=== PATIENT | female | born 1985 | race Two or more races ===

== ENCOUNTER 2021-09-27 15:55 | Day surgery (SDC) | payer OTHER ==
[~2021-09-27] VITALS: Ht 167.6 cm; Wt 113.4 kg
[2021-09-28] MEDS ORDERED: SYNTHROID200 MCG PO (06:52)
== END 2021-09-28 15:55 | disposition home or self-care (01) ==
LOC: ER 15:55 → CIR.AMB 09-28 07:42
PROVIDERS: ATTEND Obstetrics & Gynecology
DX: O02.1 Missed abortion (principal); Z20.822 Contact with and (suspected) exposure to COVID-19; F41.9 Anxiety disorder, unspecified; F12.90 Cannabis use, unspecified, uncomplicated

== ENCOUNTER 2022-03-13 10:10 | Outpatient (CLI) | payer OTHER ==
[~2022-03-13 10:10] MED LIST: SYNTHROID200 MCG PO
== END 2022-03-13 12:00 | disposition home or self-care (01) ==
LOC: PRENATAL 10:10
PROVIDERS: ATTEND Obstetrics & Gynecology Maternal & Fetal Medicine
DX: O36.80X0 Pregnancy with inconclusive fetal viability, not applicable or unspecified (principal); Z36 Encounter for antenatal screening of mother; O34.00 Maternal care for unspecified congenital malformation of uterus, unspecified trimester; O99.280 Endocrine, nutritional and metabolic diseases complicating pregnancy, unspecified trimester; O99.210 Obesity complicating pregnancy, unspecified trimester; O09.529 Supervision of elderly multigravida, unspecified trimester; Z3A.14 14 weeks gestation of pregnancy

== ENCOUNTER 2022-04-30 14:20 | Outpatient (CLI) | payer OTHER | END 2022-04-30 17:15 | disposition home or self-care (01) | LOC: PRENATAL 14:20 | PROVIDERS: ATTEND Obstetrics & Gynecology Maternal & Fetal Medicine | DX: O35.9XX0 Maternal care for (suspected) fetal abnormality and damage, unspecified, not applicable or unspecified (principal); O35.3XX0 Maternal care for (suspected) damage to fetus from viral disease in mother, not applicable or unspecified; O99.280 Endocrine, nutritional and metabolic diseases complicating pregnancy, unspecified trimester; O99.210 Obesity complicating pregnancy, unspecified trimester; Z3A.21 21 weeks gestation of pregnancy ==

== ENCOUNTER 2022-07-10 11:38 | Outpatient (CLI) | payer OTHER | END 2022-07-10 14:25 | disposition home or self-care (01) | LOC: PRENATAL 11:38 | PROVIDERS: ATTEND Obstetrics & Gynecology Maternal & Fetal Medicine | DX: O26.849 Uterine size-date discrepancy, unspecified trimester (principal); O09.529 Supervision of elderly multigravida, unspecified trimester; O99.210 Obesity complicating pregnancy, unspecified trimester; O24.419 Gestational diabetes mellitus in pregnancy, unspecified control; O99.280 Endocrine, nutritional and metabolic diseases complicating pregnancy, unspecified trimester; O34.00 Maternal care for unspecified congenital malformation of uterus, unspecified trimester; O36.8199 Decreased fetal movements, unspecified trimester, other fetus; Z3A.31 31 weeks gestation of pregnancy ==

== ENCOUNTER 2022-08-14 10:02 | Outpatient (CLI) | payer OTHER | END 2022-08-14 11:15 | disposition home or self-care (01) | LOC: PRENATAL 10:02 | PROVIDERS: ATTEND Obstetrics & Gynecology Maternal & Fetal Medicine | DX: O26.849 Uterine size-date discrepancy, unspecified trimester (principal); O36.8199 Decreased fetal movements, unspecified trimester, other fetus; O09.529 Supervision of elderly multigravida, unspecified trimester; O99.210 Obesity complicating pregnancy, unspecified trimester; O24.419 Gestational diabetes mellitus in pregnancy, unspecified control; Z3A.36 36 weeks gestation of pregnancy ==

== ENCOUNTER 2022-08-22 10:55 | Outpatient (CLI) | payer OTHER | END 2022-08-22 11:59 | disposition home or self-care (01) | LOC: NST 10:55 | PROVIDERS: ATTEND Specialist | DX: Z34.83 Encounter for supervision of other normal pregnancy, third trimester (principal) ==

== ENCOUNTER 2022-08-29 09:37 | Outpatient (CLI) | payer OTHER | END 2022-08-29 10:08 | disposition home or self-care (01) | LOC: NST 09:37 | PROVIDERS: ATTEND Specialist | DX: Z34.83 Encounter for supervision of other normal pregnancy, third trimester (principal) ==

== ENCOUNTER 2022-08-29 13:00 | Inpatient (IN) | payer OTHER ==
[~2022-08-29] VITALS: Ht 167.6 cm; Wt 2.7 kg
[2022-09-05] MEDS ORDERED: IRON325 MG PO (06:43)
[2022-09-05] MEDS ORDERED: PRENATAL + DHA1 EAC1 PO (06:43)
[2022-09-09] MEDS ORDERED: IBUPROFEN800 MG PO (08:29)
== END 2022-09-09 10:28 | disposition home or self-care (01) | DRG 788 ==
LOC: OB/GYN 09-05 05:46 → LDR 09-05 05:46 → OB/GYN 09-05 13:00
PROVIDERS: ADMIT Specialist; ATTEND Specialist
PROC: 3E0P7VZ Introduction of Hormone into Female Reproductive, Via Natural or Artificial Opening (ICD-10-PCS; 2022-09-05)
PROC: 4A1HXCZ Monitoring of Products of Conception, Cardiac Rate, External Approach (ICD-10-PCS; 2022-09-05)
PROC: 3E033VJ Introduction of Other Hormone into Peripheral Vein, Percutaneous Approach (ICD-10-PCS; 2022-09-06)
PROC: 10D00Z1 Extraction of Products of Conception, Low, Open Approach (ICD-10-PCS; principal; 2022-09-06 11:45)
DX: O62.2 Other uterine inertia (principal); O99.284 Endocrine, nutritional and metabolic diseases complicating childbirth; E03.9 Hypothyroidism, unspecified; O34.03 Maternal care for unspecified congenital malformation of uterus, third trimester; Q51.3 Bicornate uterus; O24.420 Gestational diabetes mellitus in childbirth, diet controlled; Z37.0 Single live birth; Z3A.39 39 weeks gestation of pregnancy; Z20.822 Contact with and (suspected) exposure to COVID-19